=== PATIENT | male | born 1955 | race American Indian/Alaskan Native ===

== ENCOUNTER 2020-08-07 13:25 | Emergency (ER) | payer MEDICARE ==
--- NOTE | 2020-08-07 18:44 | Event Note ---
ED Screening Note Date of service: 08/07/20 Time: 18:40 ED Screening Note: 64 y o male presents with Right groin pain that worsened yesterday, This initial assessment/diagnostic orders/clinical plan/treatment(s) is/are subject to change based on patients health status, clinical progression and re- assessment by fellow clinical providers in the ED. Further treatment and workup at subsequent clinical providers discretion. Patient/guardian urged not to elope from the ED as their condition may be serious if not clinically assessed and managed. Initial orders include: US testicular ua
[2020-08-07 20:05] LABS: Bilirubin,Urine NEG (Negative); Blood,Urine NEG (Negative); Color,Urine Yellow (Yellow); Mucus,Urine FEW /HPF; Protein,Urine <15 mg/dL mg/dL (Negative)
--- NOTE | 2020-08-07 21:22 | Ultrasound Report ---
ULTRASOUND SCROTUM INDICATION / CLINICAL INFORMATION: right sided groin testicular pain. COMPARISON: None available. FINDINGS -- RIGHT TESTIS: Size = 2.8 x 3.6 x 3.9 cm. - Appearance: No significant abnormality. - Cyst or Mass: None. - Color Doppler Flow: No significant abnormality. EPIDIDYMIS: 1.4 cm epididymal head cyst. HYDROCELE: Mild with some internal echogenicities possibly representing a spermatocele. VARICOCELE: None demonstrated. FINDINGS -- LEFT TESTIS: Size = 4.2 x 2.6 x 2.9 cm. - Appearance: No significant abnormality. - Cyst or Mass: None. - Color Doppler Flow: No significant abnormality. EPIDIDYMIS: Few small cysts measuring up to 1.0 cm. HYDROCELE: None. VARICOCELE: None demonstrated. ADDITIONAL FINDINGS: None. IMPRESSION: 1. Small right-sided spermatocele. No acute abnormality. Signer Name: Loco Girard MD Signed: 08/07/2020 9:18 PM Workstation Name: [id number]
--- NOTE | 2020-08-07 22:04 | Emergency Department Report ---
ED General Adult HPI - General Chief complaint: Abdominal Pain Stated complaint: ABD PAIN Time Seen by Provider: 08/07/20 21:52 Source: patient Mode of arrival: Ambulatory Limitations: No Limitations - History of Present Illness Initial comments: Patient is 64 years old male with no significant past medical history. Patient presented to the ER complaining of hernia. Patient stated that it has been going on for few months and has been evaluated by his urologist at the [facility] and he was advised that he will need surgery that he will take long recovery. Patient stated that he noticed that the swelling is coming more on the right side. Patient stated that it was worse yesterday but today he does not have a pain that he just wanted to make sure that what he can do. Patient denied any fever or chills. No nausea or vomiting. Patient also denied any dysuria. - Related Data Previous Rx's Medication Instructions Recorded Last Taken Type Pantoprazole [Protonix TAB] 20 mg PO DAILY #30 tablet. 06/12/16 Unknown Rx Allergies Allergy/AdvReac Type Severity Reaction Status Date / Time Penicillins Allergy Unknown Verified 06/11/16 19:54 ED Review of Systems ROS: Stated complaint: ABD PAIN Other details as noted in HPI Comment: All other systems reviewed and negative Constitutional: denies: chills, fever Respiratory: denies: cough, shortness of breath, SOB with exertion Cardiovascular: denies: chest pain, palpitations Gastrointestinal: denies: abdominal pain, nausea, vomiting, diarrhea, const ipation, hematemesis, hematochezia Genitourinary: other (Scrotal swelling.). denies: urgency Musculoskeletal: denies: back pain ED Past Medical Hx - Past Medical History Previous Medical History?: Yes Hx Congestive Heart Failure: No Hx Diabetes: No Hx Asthma: No Hx COPD: No Hx HIV: No Additional medical history: HERNIA - Surgical History Past Surgical History?: Yes Additional Surgical History: KNEE. prostate - Social History Smoking Status: Never Smoker - Medications Home Medications: Home Medications Medication Instructions Recorded Confirmed Last Taken Type Pantoprazole [Protonix TAB] 20 mg PO DAILY #30 tablet. 06/12/16 06/27/18 Unknown Rx ED Physical Exam - General Limitations: No Limitations General appearance: alert, in no apparent distress - Head Head exam: Present: atraumatic, normocephalic, normal inspection - Eye Eye exam: Present: normal appearance - ENT ENT exam: Present: normal exam, normal orophraynx, mucous membranes moist - Neck Neck exam: Present: normal inspection, full ROM. Absent: tenderness, meningismus - Respiratory Respiratory exam: Present: normal lung sounds bilaterally - Cardiovascular Cardiovascular Exam: Present: regular rate, normal rhythm, normal heart sounds - GI/Abdominal GI/Abdominal exam: Present: soft, normal bowel sounds. Absent: distended, tenderness, guarding, rebound, rigid, organomegaly, mass, bruit, pulsatile mass, hernia - exam: Present: normal inspection. Absent: testicular tenderness, urethral discharge, scrotal swelling External exam: Present: normal external exam. Absent: erythema, swelling - Extremities Exam Extremities exam: Present: normal inspection, full ROM, normal capillary refill. Absent: tenderness - Back Exam Back exam: Present: normal inspection, full ROM. Absent: CVA tenderness (R), CVA tenderness (L) - Neurological Exam Neurological exam: Present: alert, oriented X3, CN II-XII intact - Psychiatric Psychiatric exam: Present: normal mood - Skin Skin exam: Present: warm, intact, normal color ED Course Vital Signs 08/07/20 14:55 Temperature 98.3 F Pulse Rate 57 L Respiratory 20 Rate Blood Pressure 160/85 O2 Sat by Pulse 96 Oximetry ED Medical Decision Making - Radiology Data Radiology results: report reviewed - Medical Decision Making Patient is 64 years old male with no significant past medical history. Patient presented to the ER complaining of hernia. Patient stated that it has been going on for few months and has been evaluated by his urologist at the [facility] and he was advised that he will need surgery that he will take long recovery. Patient stated that he noticed that the swelling is coming more on the right side. Patient stated that it was worse yesterday but today he does not have a pain that he just wanted to make sure that what he can do. Patient denied any fever or chills. No nausea or vomiting. Patient also denied any dysuria. Testicular ultrasound showed right spermatocele. On physical exam I did not appreciate any hernia even while examining the patient standing. Patient also admitted that he did not feel his hernia coming down today. Patient showed no evidence of bowel obstruction. Patient given prescription for Naprosyn and Ultram for pain and advised to follow-up with his primary care physician for referral to urologist and if there is inguinal or femoral hernia to be referred to general surgeon. Patient also advised to return to the ER if his symptoms get worse or if he develop new symptoms. Critical care attestation.: If time is entered above; I have spent that time in minutes in the direct care of this critically ill patient, excluding procedure time. ED Disposition Clinical Impression: Spermatocele Disposition: DC-01 TO HOME OR SELFCARE Condition: Stable Instructions: Spermatocele Referrals: PRIMARY CARE, [Primary Care Provider] - 3-5 Days
[2020-08-07 22:32] VITALS: BP 137/77
== END 2020-08-07 22:22 | disposition home or self-care (01) ==
LOC: ED 13:25
DX: N43.40 Spermatocele of epididymis, unspecified (principal); Z98.890 Other specified postprocedural states; Z79.899 Other long term (current) drug therapy
CPT/HCPCS: 81001; 93975

== ENCOUNTER 2020-12-30 03:51 | Emergency (ER) | payer MEDICARE ==
[2020-12-30 05:10] VITALS: BP 168/74
[2020-12-30 05:41] LABS: Basophils % (Auto) 0.5 % (0.0-1.8); Eosinophils # (Auto) 0.2 K/mm3 (0.0-0.4); Eosinophils % (Auto) 2.4 % (0.0-4.3); Hematocrit 44.2 % (35.5-45.6); Hemoglobin 15.3 gm/dl (11.8-15.2); Lymphocytes % (Auto) 28.4 % (13.4-35.0); Mean Corpuscular HGB Conc 35 % (32-34); Mean Corpuscular Volume 98 fl (84-94); Monocytes # (Auto) 0.5 K/mm3 (0.0-0.8); Monocytes % (Auto) 6.8 % (0.0-7.3); Platelet Count 214 K/mm3 (140-440); Red Blood Count 4.53 M/mm3 (3.65-5.03); Red Cell Distribution Width 13.7 % (13.2-15.2)
[2020-12-30 06:00] LABS: Alanine Aminotransferase 17 units/L (7-56); BUN/Creatinine Ratio 11; Blood Urea Nitrogen 11 mg/dL (9-20); Calcium 8.6 mg/dL (8.4-10.2); Hemolysis Index 2
[2020-12-30 13:41] LABS: Bilirubin,Urine NEG (Negative); Blood,Urine NEG (Negative); Color,Urine Yellow (Yellow); Mucus,Urine 3+ /HPF
== END 2020-12-30 13:30 | disposition left against medical advice (07) ==
LOC: ED 03:51
DX: N50.82 Scrotal pain (principal); Z53.21 Procedure and treatment not carried out due to patient leaving prior to being seen by health care provider
CPT/HCPCS: 36415; 80053; 81001; 85025